=== PATIENT | male | born 1955 | race Hispanic/Latino ===

== ENCOUNTER 2023-03-18 00:31 | Inpatient (IN) | payer OTHER ==
[2023-03-18] VITALS (56 sets, daily range): BP systolic 83–130; BP diastolic 22–98; PULSE 52–67; RESP 11–51; O2SAT 94–99
[~2023-03-18] VITALS: Ht 167.6 cm; Wt 94.3 kg
[2023-03-18] MEDS ORDERED: BRIM5DRO OP (04:29)
[2023-03-18] MEDS ORDERED: LANT10005 PO (04:29)
[2023-03-18] MEDS ORDERED: GLIP5TAB11 PO (04:29)
[2023-03-18] MEDS ORDERED: CILO100T3 PO (04:29)
[2023-03-18] MEDS ORDERED: PRAV20TA4 PO (04:29)
[2023-03-18] MEDS ORDERED: DEXTROSE 50%-WATER 50 ML DISP.SYRIN IV PRN (12:30)
[2023-03-18] MEDS ORDERED: GLUCAGON 1MG KIT 1 MG ML IM PRN (12:30)
[2023-03-18 13:04] LABS: INR 1.07 (0.85-1.15); PROTHROMBIN TIME 12.4 SEC (9.6-11.6)
[2023-03-18 13:05] LABS: PARTIAL THROMBOPLASTIN TIME 36.6 SEC (26.3-35.5)
[2023-03-18 13:06] LABS: HEMOGLOBIN A1C 6.4 % (4.0-6.0)
[2023-03-18 13:10] LABS: ALBUMIN 2.5 g/dL (3.5-5.0); BILIRUBIN,TOTAL 0.7 mg/dL (0.2-1.0); CREATININE 7.3 mg/dL (0.5-1.5); POTASSIUM 4.2 mmol/L (3.5-5.1); TOTAL PROTEIN, SERUM 6.5 g/dL (6.0-8.3)
[2023-03-18 13:46] LABS: B-TYPE NATRIURETIC PEPTIDE > 5000 pg/mL (0-100)
[2023-03-18 13:50] LABS: HEMATOCRIT 30.6 % (42-54); MEAN CORPUSCULAR HEMOGLOBIN 31.3 pg (27.0-33.0); MEAN CORPUSCULAR VOLUME 100.7 fL (79-99); PLATELET COUNT (AUTO) 182 K/uL (130-400); RED BLOOD CELL COUNT(AUTO) 3.04 MIL/uL (4.50-6.20); RED CELL DISTRIBUTION WIDTH 14.2 % (11.0-15.5); WHITE BLOOD COUNT (AUTO) 10.9 K/uL (4.8-10.8)
[2023-03-18] MEDS ORDERED: PHENTOLAMINE MESYLATE 5 MG VIAL ICAV SCH (15:00)
[2023-03-18] MEDS ORDERED: VANCOMYCIN PROTOCOL PER PHARMACY IV SCH (15:00)
[2023-03-18] MEDS ORDERED: VANCOMYCIN 1.5 GM/250 ML BAG 250 ML IV ONE (15:00)
[2023-03-18 15:25] LABS: ABG BASE EXCESS -0.7 mmol/L (-2.0-3.0); ABG HCO3 24.1 mmol/L (21.0-28.0); ABG OXYGEN SATURATION 94.7 % (95.0-99.0); ABG PCO2 41 mmHg (35-48); ABG PH 7.393 (7.35-7.450); DEVICE COMMENT RR; PO2, ARTERIAL BG 73.4 mmHg (83.0-108.0); VENT MODE, BG NC (ROOM AIR)
[2023-03-18] MEDS: INSULIN HUMULIN R 100 UNIT/ML 3ML SQ SCH ×2 (16:30→21:00)
[2023-03-18] MEDS: LANTHANUM CARBONATE 1000 MG PO SCH (16:46)
[2023-03-18] MEDS: MEROPENEM 500 MG in 0.9%NACL 100ML 100 ML IV SCH (18:02)
[2023-03-18] MEDS ORDERED: ATORVASTATIN 40 MG TABLET PO SCH (21:00)
[2023-03-18] MEDS: METOPROLOL TARTRATE 25 MG TAB PO SCH (21:00)
[2023-03-18] MEDS: TIMOLOL OP SCH (21:29)
[2023-03-18] MEDS: BRIMONIDINE TARTRATE OP SCH (21:29)
[2023-03-18] MEDS: ATORVASTATIN 40 MG TABLET PO SCH (21:31)
[2023-03-18] MEDS ORDERED: HEPARIN 5,000 UNIT VIAL SQ SCH (23:00)
[2023-03-19] VITALS (46 sets, daily range): BP systolic 90–246; BP diastolic 25–238; PULSE 52–70; RESP 10–21; TEMP 97.4; O2SAT 98–100
[2023-03-19 04:21] LABS: HEPATITIS B SURFACE ANTIGEN Non-Reactive (Nonreactive); HEPATITIS C ANTIBODY Non-Reactive (Nonreactive)
[2023-03-19 04:23] LABS: HEPATITIS A IGM ANTIBODY Non-Reactive (Nonreactive); HEPATITIS B CORE IGM ANTIBODY Non-Reactive (Negative)
[2023-03-19 06:32] LABS: BASOPHILS # (AUTO) 0.04 K/uL (0.00-0.20); BASOPHILS % (AUTO) 0.4 % (0.0-5.0); EOSINOPHILS # (AUTO) 0.11 K/uL (0.00-0.70); EOSINOPHILS % (AUTO) 1.2 % (0.0-8.0); HEMATOCRIT 28.8 % (42-54); IMMATURE GRANULOCYTE ABSOLUTE 0.07 K/uL (0-1); LYMPHOCYTES # (AUTO) 1.1 K/uL (1.0-4.8); LYMPHOCYTES % (AUTO) 11.5 % (21.0-51.0); MEAN CORPUSCULAR HEMOGLOBIN 30.8 pg (27.0-33.0); MEAN CORPUSCULAR HGB CONC 31.3 g/dL (32.0-36.0); MEAN CORPUSCULAR VOLUME 98.6 fL (79-99); MONOCYTES # (AUTO) 0.9 K/uL (0.1-1.0); MONOCYTES % (AUTO) 10.1 % (3.0-13.0); PLATELET COUNT (AUTO) 172 K/uL (130-400); RED BLOOD CELL COUNT(AUTO) 2.92 MIL/uL (4.50-6.20); RED CELL DISTRIBUTION WIDTH 14.2 % (11.0-15.5); WHITE BLOOD COUNT (AUTO) 9.3 K/uL (4.8-10.8)
[2023-03-19 06:53] LABS: PROTHROMBIN TIME 11.6 SEC (9.6-11.6)
[2023-03-19 06:55] LABS: PARTIAL THROMBOPLASTIN TIME 35.5 SEC (26.3-35.5)
[2023-03-19 06:57] LABS: ALBUMIN 2.4 g/dL (3.5-5.0); BILIRUBIN,TOTAL 0.6 mg/dL (0.2-1.0); PHOSPHORUS 6.3 mg/dL (2.5-4.9); POTASSIUM 3.8 mmol/L (3.5-5.1); TOTAL PROTEIN, SERUM 6.3 g/dL (6.0-8.3)
[2023-03-19 06:58] LABS: CREATININE 8.5 mg/dL (0.5-1.5)
[2023-03-19] MEDS: INSULIN HUMULIN R 100 UNIT/ML 3ML SQ SCH ×2 (07:30→11:30)
[2023-03-19] MEDS: LANTHANUM CARBONATE 1000 MG PO SCH ×3 (07:30→22:08)
[2023-03-19] MEDS: TIMOLOL OP SCH ×2 (09:00→21:00)
[2023-03-19] MEDS: ASPIRIN 81 MG EC TAB PO SCH (09:00)
[2023-03-19] MEDS: BRIMONIDINE TARTRATE OP SCH ×2 (09:00→21:00)
[2023-03-19] MEDS: PANTOPRAZOLE 40 MG/VIAL IVP SCH (09:00)
[2023-03-19] MEDS: METOPROLOL TARTRATE 25 MG TAB PO SCH (09:00)
[2023-03-19] MEDS ORDERED: CEFAZOLIN SODIUM 2 GM VIAL IVPB SCH (10:00)
[2023-03-19] MEDS ORDERED: EPOETIN ALFA-EPBX (NON-ESRD) 10,000 UNIT/ML VIAL SQ SCH (10:00)
[2023-03-19] MEDS ORDERED: NOREPINEPHRINE BITARTRATE 8 MG in DEXTROSE 5%-WATER 250 ML IV PRN ×2 (11:00→19:00)
[2023-03-19] MEDS ORDERED: AMINOCAPROIC ACID 5,000MG VIAL 15,000 MG in 0.9% NACL 500ML IV.SOLN 420 ML IV PRN (11:00)
[2023-03-19] MEDS ORDERED: EPINEPHRINE PF 1MG (1:1,000) 10 MG in 0.9% NACL 250ML 240 ML IV PRN ×2 (11:00→19:00)
[2023-03-19 12:30] LABS: SARS-CoV-2, RNA, NAAT NEGATIVE SARS CoV-2 (NEGATIVE)
[2023-03-19] MEDS ORDERED: NITROGLYCERIN 50MG/D5W 250ML 1 BOT ONE (12:37)
[2023-03-19] MEDS ORDERED: PAPAVERINE HCL 30 MG/ML 2ML VIAL ONE (12:51)
[2023-03-19] MEDS ORDERED: CEFAZOLIN SODIUM 1 GM VIAL ONE (12:52)
[2023-03-19] MEDS ORDERED: PROPOFOL 10 MG/ML 20ML VIAL IV ONE ×2 (15:17→18:45)
[2023-03-19] MEDS ORDERED: MIDAZOLAM HCL 1 MG/ML 2ML VIAL ONE (15:19)
[2023-03-19] MEDS ORDERED: FENTANYL CITRATE PF 50 MCG/1 ML 20ML VIAL IJ ONE (15:19)
[2023-03-19] MEDS ORDERED: ROCURONIUM 10MG/1ML SYR 10 MG/ML ML ONE ×2 (15:20→19:06)
[2023-03-19] MEDS ORDERED: ONDANSETRON 4MG INJ ONE (15:41)
[2023-03-19] MEDS ORDERED: CEFAZOLIN SODIUM 2 GM VIAL IVPB ONE (16:53)
[2023-03-19 17:41] LABS: ABG BASE EXCESS -2.1 mmol/L (-2.0-3.0); ABG HCO3 22.4 mmol/L (21.0-28.0); ABG OXYGEN SATURATION 99.1 % (95.0-99.0); ABG PCO2 37 mmHg (35-48); ABG PH 7.397 (7.35-7.450); CARBON MONOXIDE 0.3; DEVICE COMMENT 1; HHb 0.9; PO2, ARTERIAL BG 310.7 mmHg (83.0-108.0)
[2023-03-19] MEDS ORDERED: DEXTROSE 50%-WATER 50 ML DISP.SYRIN IV PRN (19:00)
[2023-03-19] MEDS ORDERED: 0.9%NACL 1000ML 1,000 ML IV SCH (19:00)
[2023-03-19] MEDS ORDERED: LACTULOSE 20 GM/30 ML UDCUP PO PRN (19:00)
[2023-03-19] MEDS ORDERED: MORPHINE 2 MG SYG IV PRN (19:00)
[2023-03-19] MEDS ORDERED: ACETAMINOPHEN 650 MG SUPPOSITORY RC PRN (19:00)
[2023-03-19] MEDS ORDERED: GLUCAGON 1MG KIT 1 MG ML IM PRN (19:00)
[2023-03-19] MEDS ORDERED: 0.9% NACL 500ML IV.SOLN 500 ML IV SCH (19:00)
[2023-03-19] MEDS ORDERED: MORPHINE 4 MG SYG IV PRN (19:00)
[2023-03-19] MEDS ORDERED: POTASSIUM PHOS 15 mMOL+NS250ML 250 ML IV PRN (19:00)
[2023-03-19] MEDS ORDERED: MAGNESIUM 2GM PREMIX 50ML 50 ML IV PRN (19:00)
[2023-03-19] MEDS ORDERED: ACETAMINOPHEN 325 MG TAB PO PRN (19:00)
[2023-03-19] MEDS ORDERED: 0.9%NACL 10ML VIAL IVP PRN (19:00)
[2023-03-19] MEDS ORDERED: INSULIN REGULAR, HUMAN 3ML 100 UNIT in 0.9%NACL 100ML 99 ML IV SCH ×2 (19:00)
[2023-03-19] MEDS ORDERED: POTASSIUM CHLORIDE 20MEQ/100ML 100 ML IV PRN (19:00)
[2023-03-19] MEDS ORDERED: AMINOCAPROIC ACID 5,000MG VIAL 15,000 MG in 0.9% NACL 250ML 250 ML IV SCH (19:00)
[2023-03-19] MEDS ORDERED: PROPOFOL 1000 MG/100 ML 100 ML IV PRN (19:00)
[2023-03-19] MEDS ORDERED: ALBUMIN (HUMAN) 5% 250 ML IV PRN (19:00)
[2023-03-19] MEDS ORDERED: TRAMADOL HCL 50 MG TABLET PO PRN ×2 (19:00)
[2023-03-19] MEDS ORDERED: NITROGLYCERIN 50MG/D5W 250ML 250 BOT IV SCH (19:00)
[2023-03-19 19:10] LABS: ABG BASE EXCESS -6.7 mmol/L (-2.0-3.0); ABG HCO3 19.1 mmol/L (21.0-28.0); ABG OXYGEN SATURATION 99.3 % (95.0-99.0); ABG PCO2 39 mmHg (35-48); ABG PH 7.305 (7.35-7.450); CARBON MONOXIDE 0.2; DEVICE COMMENT 0; HHb 0.7; PO2, ARTERIAL BG 330.7 mmHg (83.0-108.0)
[2023-03-19] MEDS ORDERED: SODIUM BICARB 50MEQ 50ML VIAL 50 ML ONE (19:28)
[2023-03-19 20:03] LABS: ABG BASE EXCESS 3.3 mmol/L (-2.0-3.0); ABG HCO3 27.2 mmol/L (21.0-28.0); ABG OXYGEN SATURATION 99.3 % (95.0-99.0); ABG PCO2 39 mmHg (35-48); ABG PH 7.465 (7.35-7.450); CARBON MONOXIDE 0.3; DEVICE COMMENT 0; HHb 0.7; PO2, ARTERIAL BG > 500.0 mmHg (83.0-108.0)
[2023-03-19] MEDS ORDERED: KETAMINE 50MG/ML SYRINGE 50 MG/ML DISP.SYRIN ONE (20:36)
[2023-03-19] MEDS ORDERED: PROTAMINE SULFATE 10 MG/ML 25ML VIAL IV ONE (20:52)
[2023-03-19] MEDS ORDERED: ESMOLOL HCL 10 MG/ML 10 ML VIAL ONE (20:52)
[2023-03-19] MEDS ORDERED: EPINEPHRINE PF 1MG (1:1,000) 1 MG/ML AMP ONE (20:52)
[2023-03-19] MEDS ORDERED: LIDOCAINE PF 100MG/5ML (2%) SYRINGE 5ML ONE (20:52)
[2023-03-19] MEDS ORDERED: AMINOCAPROIC ACID 5,000MG VIAL ONE (20:52)
[2023-03-19] MEDS ORDERED: HEPARIN 10,000 UNIT/10ML (1,000 UNIT/ML) VIAL ONE (20:52)
[2023-03-19] MEDS ORDERED: NOREPINEPHRINE BITARTRATE 1 MG/1 ML ML IV ONE (20:52)
[2023-03-19] MEDS ORDERED: ASPIRIN 81MG CHEW TAB PO ONE (21:00)
[2023-03-19] MEDS ORDERED: FENTANYL CITRATE PF 50 MCG/1 ML 2ML VIAL ONE (21:16)
[2023-03-19 21:20] LABS: ABG BASE EXCESS -2.9 mmol/L (-2.0-3.0); ABG HCO3 21.5 mmol/L (21.0-28.0); ABG OXYGEN SATURATION 98.8 % (95.0-99.0); ABG PCO2 36 mmHg (35-48); ABG PH 7.396 (7.35-7.450); CARBON MONOXIDE 0.6; HHb 1.2; PO2, ARTERIAL BG 319.9 mmHg (83.0-108.0); VENT MODE, BG SIMV PS10 (ROOM AIR)
[2023-03-19] MEDS: CALCIUM GLUC 1GM 1 GM in 0.9%NACL 50ML 50 ML IV PRN ×2 (21:36→22:14)
[2023-03-19] MEDS: SODIUM BICARB 50MEQ 50ML VIAL IV PRN ×4 (21:36→23:39)
[2023-03-19 21:44] LABS: HEMATOCRIT 34.2 % (42-54); MEAN CORPUSCULAR HEMOGLOBIN 30.4 pg (27.0-33.0); MEAN CORPUSCULAR HGB CONC 31.6 g/dL (32.0-36.0); MEAN CORPUSCULAR VOLUME 96.3 fL (79-99); RED BLOOD CELL COUNT(AUTO) 3.55 MIL/uL (4.50-6.20); WHITE BLOOD COUNT (AUTO) 14.6 K/uL (4.8-10.8)
[2023-03-19 21:57] LABS: INR 1.08 (0.85-1.15); PROTHROMBIN TIME 12.5 SEC (9.6-11.6)
[2023-03-19 21:58] LABS: CREATININE 7.8 mg/dL (0.5-1.5); MAGNESIUM 1.7 mg/dL (1.80-2.40); PHOSPHORUS 6.2 mg/dL (2.5-4.9)
[2023-03-19 21:59] LABS: PARTIAL THROMBOPLASTIN TIME 31.8 SEC (26.3-35.5)
[2023-03-19 22:03] LABS: ABG BASE EXCESS 0.3 mmol/L (-2.0-3.0); ABG HCO3 24.5 mmol/L (21.0-28.0); ABG OXYGEN SATURATION 98.4 % (95.0-99.0); ABG PCO2 38 mmHg (35-48); ABG PH 7.431 (7.35-7.450); CARBON MONOXIDE 0.3; HHb 1.6; PO2, ARTERIAL BG 306.9 mmHg (83.0-108.0); VENT MODE, BG SIMV PS10 (ROOM AIR)
[2023-03-19] MEDS: DOCUSATE SODIUM 100 MG CAP PO SCH (22:15)
[2023-03-19] MEDS: FAMOTIDINE 20MG VIAL IV SCH (22:15)
[2023-03-19] MEDS: ATORVASTATIN 40 MG TABLET PO SCH (22:15)
[2023-03-19 22:57] LABS: ABG BASE EXCESS -2.8 mmol/L (-2.0-3.0); ABG HCO3 21.7 mmol/L (21.0-28.0); ABG OXYGEN SATURATION 97.8 % (95.0-99.0); ABG PCO2 37 mmHg (35-48); ABG PH 7.392 (7.35-7.450); HHb 2.2; PO2, ARTERIAL BG 136.8 mmHg (83.0-108.0); VENT MODE, BG SIMV PS10 (ROOM AIR)
[2023-03-19] MEDS: CEFAZOLIN SODIUM 2 GM VIAL IVPB SCH (23:42)
[2023-03-20] VITALS (115 sets, daily range): BP systolic 65–198; BP diastolic 23–94; PULSE 53–76; RESP 6–41; TEMP 97.6–99; O2SAT 98–100
[2023-03-20 00:10] LABS: ABG BASE EXCESS -0.6 mmol/L (-2.0-3.0); ABG HCO3 23.2 mmol/L (21.0-28.0); ABG OXYGEN SATURATION 97.5 % (95.0-99.0); ABG PCO2 35 mmHg (35-48); ABG PH 7.441 (7.35-7.450); CARBON MONOXIDE 0.6; HHb 2.5; PO2, ARTERIAL BG 132.6 mmHg (83.0-108.0); VENT MODE, BG SIMV PS10 (ROOM AIR)
[2023-03-20] MEDS: CALCIUM GLUC 1GM 1 GM in 0.9%NACL 50ML 50 ML IV PRN ×4 (00:17→08:23)
[2023-03-20] MEDS: SODIUM BICARB 50MEQ 50ML VIAL IV PRN (00:17)
[2023-03-20 01:10] LABS: ABG BASE EXCESS 0.4 mmol/L (-2.0-3.0); ABG HCO3 25.4 mmol/L (21.0-28.0); ABG OXYGEN SATURATION 97.1 % (95.0-99.0); ABG PCO2 43 mmHg (35-48); ABG PH 7.393 (7.35-7.450); CARBON MONOXIDE 0.6; HHb 2.9; PO2, ARTERIAL BG 112.3 mmHg (83.0-108.0); VENT MODE, BG SIMV PS10 (ROOM AIR)
[2023-03-20 02:09] LABS: ABG BASE EXCESS 1.5 mmol/L (-2.0-3.0); ABG HCO3 24.9 mmol/L (21.0-28.0); ABG OXYGEN SATURATION 97.2 % (95.0-99.0); ABG PCO2 35 mmHg (35-48); ABG PH 7.475 (7.35-7.450); CARBON MONOXIDE 0.4; HHb 2.8; PO2, ARTERIAL BG 111.8 mmHg (83.0-108.0); VENT MODE, BG SIMV PS10 (ROOM AIR)
[2023-03-20 03:10] LABS: ABG HCO3 26.3 mmol/L (21.0-28.0); ABG OXYGEN SATURATION 97.2 % (95.0-99.0); ABG PCO2 31 mmHg (35-48); ABG PH 7.543 (7.35-7.450); CARBON MONOXIDE 0.4; HHb 2.8; PO2, ARTERIAL BG 105.1 mmHg (83.0-108.0); VENT MODE, BG SIMV,PS10 (ROOM AIR)
[2023-03-20 03:29] LABS: BASOPHILS # (AUTO) 0.03 K/uL (0.00-0.20); BASOPHILS % (AUTO) 0.2 % (0.0-5.0); EOSINOPHILS # (AUTO) 0.01 K/uL (0.00-0.70); EOSINOPHILS % (AUTO) 0.1 % (0.0-8.0); HEMATOCRIT 28.8 % (42-54); IMMATURE GRANULOCYTE ABSOLUTE 0.19 K/uL (0-1); LYMPHOCYTES # (AUTO) 0.9 K/uL (1.0-4.8); LYMPHOCYTES % (AUTO) 7.2 % (21.0-51.0); MEAN CORPUSCULAR HEMOGLOBIN 30.7 pg (27.0-33.0); MEAN CORPUSCULAR VOLUME 93.2 fL (79-99); MONOCYTES # (AUTO) 1.1 K/uL (0.1-1.0); MONOCYTES % (AUTO) 8.8 % (3.0-13.0); NEUTROPHILS # (AUTO) 10.4 K/uL (1.8-7.7); NEUTROPHILS % (AUTO) 82.2 % (40.0-77.0); PLATELET COUNT (AUTO) 146 K/uL (130-400); RED BLOOD CELL COUNT(AUTO) 3.09 MIL/uL (4.50-6.20); RED CELL DISTRIBUTION WIDTH 15.6 % (11.0-15.5); WHITE BLOOD COUNT (AUTO) 12.7 K/uL (4.8-10.8)
[2023-03-20 03:42] LABS: INR 1.06 (0.85-1.15); PROTHROMBIN TIME 12.2 SEC (9.6-11.6)
[2023-03-20 03:43] LABS: PARTIAL THROMBOPLASTIN TIME 29.3 SEC (26.3-35.5)
[2023-03-20 04:00] LABS: BILIRUBIN,TOTAL 0.9 mg/dL (0.2-1.0); MAGNESIUM 2.3 mg/dL (1.80-2.40); PHOSPHORUS 6.3 mg/dL (2.5-4.9); POTASSIUM 3.8 mmol/L (3.5-5.1); TOTAL PROTEIN, SERUM 4.8 g/dL (6.0-8.3)
[2023-03-20 04:22] LABS: ABG BASE EXCESS 2.5 mmol/L (-2.0-3.0); ABG HCO3 26.7 mmol/L (21.0-28.0); ABG OXYGEN SATURATION 96.9 % (95.0-99.0); ABG PCO2 40 mmHg (35-48); ABG PH 7.444 (7.35-7.450); CARBON MONOXIDE 0.6; HHb 3.1; PO2, ARTERIAL BG 108.3 mmHg (83.0-108.0); VENT MODE, BG SIMV PS10 (ROOM AIR)
[2023-03-20 04:25] LABS: CREATININE 8.4 mg/dL (0.5-1.5)
[2023-03-20 05:31] LABS: ABG HCO3 24.7 mmol/L (21.0-28.0); ABG PCO2 36 mmHg (35-48); ABG PH 7.456 (7.35-7.450); CARBON MONOXIDE 0.9; PO2, ARTERIAL BG 101.6 mmHg (83.0-108.0); VENT MODE, BG SIMV PS10 (ROOM AIR)
[2023-03-20] MEDS: ONDANSETRON 4MG INJ IV PRN (05:34)
[2023-03-20 06:33] LABS: ABG BASE EXCESS 1.5 mmol/L (-2.0-3.0); ABG HCO3 25.1 mmol/L (21.0-28.0); ABG OXYGEN SATURATION 97.2 % (95.0-99.0); ABG PCO2 36 mmHg (35-48); ABG PH 7.466 (7.35-7.450); CARBON MONOXIDE 0.4; DEVICE COMMENT ALINE; HHb 2.8; PO2, ARTERIAL BG 114.2 mmHg (83.0-108.0); VENT MODE, BG SIMV PS10 (ROOM AIR)
[2023-03-20 07:27] LABS: ABG BASE EXCESS 1.8 mmol/L (-2.0-3.0); ABG HCO3 24.6 mmol/L (21.0-28.0); ABG OXYGEN SATURATION 97.4 % (95.0-99.0); ABG PCO2 32 mmHg (35-48); ABG PH 7.501 (7.35-7.450); CARBON MONOXIDE 0.4; DEVICE COMMENT ALINE; HHb 2.6; PO2, ARTERIAL BG 111.8 mmHg (83.0-108.0); VENT MODE, BG SIMV PS10 (ROOM AIR)
[2023-03-20] MEDS: LANTHANUM CARBONATE 1000 MG PO SCH ×3 (07:30→17:00)
[2023-03-20] MEDS: FAMOTIDINE 20MG VIAL IV SCH ×2 (07:51→19:54)
[2023-03-20] MEDS: PANTOPRAZOLE 40 MG/VIAL IVP SCH (07:51)
[2023-03-20] MEDS: DOCUSATE SODIUM 100 MG CAP PO SCH ×2 (07:51→19:54)
[2023-03-20] MEDS: CEFAZOLIN SODIUM 2 GM VIAL IVPB SCH ×2 (07:51→17:33)
[2023-03-20] MEDS: ASPIRIN 81 MG EC TAB PO SCH (07:51)
[2023-03-20 09:00] LABS: ABG BASE EXCESS 0.3 mmol/L (-2.0-3.0); ABG HCO3 22.7 mmol/L (21.0-28.0); ABG OXYGEN SATURATION 96.2 % (95.0-99.0); ABG PCO2 29 mmHg (35-48); ABG PH 7.513 (7.35-7.450); CARBON MONOXIDE 0.3; CPAP, BG 5 cm H2O; DEVICE COMMENT ALINE; HHb 3.8; PO2, ARTERIAL BG 91.6 mmHg (83.0-108.0); VENT MODE, BG CPAP5 PS10 (ROOM AIR)
[2023-03-20] MEDS: BRIMONIDINE TARTRATE OP SCH ×2 (09:00→19:57)
[2023-03-20] MEDS: TIMOLOL OP SCH ×2 (09:00→19:57)
[2023-03-20] MEDS: MEROPENEM 500 MG in 0.9%NACL 100ML 100 ML IV SCH ×2 (14:10→14:11)
[2023-03-20] MEDS ORDERED: ALBUMIN (HUMAN) 5% 250 ML IV ONE (15:11)
[2023-03-20] MEDS ORDERED: CEFAZOLIN SODIUM 2 GM VIAL IVPB SCH (17:30)
[2023-03-20] MEDS: ATORVASTATIN 40 MG TABLET PO SCH (19:54)
[2023-03-20] MEDS: VANCOMYCIN KIT 1 GM/250 ML IV.KIT IV SCH (19:54)
[2023-03-21] VITALS (88 sets, daily range): BP systolic 48–264; BP diastolic 17–96; PULSE 57–121; RESP 4–27; TEMP 97.7–98.9; O2SAT 98–100
[2023-03-21 04:23] LABS: BASOPHILS # (AUTO) 0.06 K/uL (0.00-0.20); BASOPHILS % (AUTO) 0.4 % (0.0-5.0); EOSINOPHILS # (AUTO) 0.03 K/uL (0.00-0.70); EOSINOPHILS % (AUTO) 0.2 % (0.0-8.0); HEMATOCRIT 27.3 % (42-54); IMMATURE GRANULOCYTE ABSOLUTE 0.18 K/uL (0-1); LYMPHOCYTES # (AUTO) 1.3 K/uL (1.0-4.8); LYMPHOCYTES % (AUTO) 9.1 % (21.0-51.0); MEAN CORPUSCULAR HEMOGLOBIN 30.8 pg (27.0-33.0); MEAN CORPUSCULAR HGB CONC 32.2 g/dL (32.0-36.0); MEAN CORPUSCULAR VOLUME 95.5 fL (79-99); MONOCYTES # (AUTO) 1.6 K/uL (0.1-1.0); MONOCYTES % (AUTO) 11.9 % (3.0-13.0); NEUTROPHILS # (AUTO) 10.6 K/uL (1.8-7.7); NEUTROPHILS % (AUTO) 77.1 % (40.0-77.0); PLATELET COUNT (AUTO) 167 K/uL (130-400); RED BLOOD CELL COUNT(AUTO) 2.86 MIL/uL (4.50-6.20); RED CELL DISTRIBUTION WIDTH 15.6 % (11.0-15.5); WHITE BLOOD COUNT (AUTO) 13.7 K/uL (4.8-10.8)
[2023-03-21 04:49] LABS: ALBUMIN 2.3 g/dL (3.5-5.0); BILIRUBIN,TOTAL 0.5 mg/dL (0.2-1.0); CREATININE 6.5 mg/dL (0.5-1.5); MAGNESIUM 2.1 mg/dL (1.80-2.40); POTASSIUM 3.5 mmol/L (3.5-5.1); TOTAL PROTEIN, SERUM 5.5 g/dL (6.0-8.3)
[2023-03-21] MEDS: LANTHANUM CARBONATE 1000 MG PO SCH ×3 (07:30→17:00)
[2023-03-21] MEDS: METOPROLOL TARTRATE 25 MG TAB PO SCH ×2 (07:58→21:00)
[2023-03-21] MEDS: ASPIRIN 81 MG EC TAB PO SCH (08:49)
[2023-03-21] MEDS: FAMOTIDINE 20MG VIAL IV SCH ×2 (08:49→20:06)
[2023-03-21] MEDS: DOCUSATE SODIUM 100 MG CAP PO SCH ×2 (08:49→20:06)
[2023-03-21] MEDS: PANTOPRAZOLE 40 MG/VIAL IVP SCH (08:49)
[2023-03-21] MEDS: TIMOLOL OP SCH (10:06)
[2023-03-21] MEDS: BRIMONIDINE TARTRATE OP SCH (10:06)
[2023-03-21] MEDS: MEROPENEM 500 MG in 0.9%NACL 100ML 100 ML IV SCH (16:47)
[2023-03-21] MEDS: INSULIN HUMULIN R 100 UNIT/ML 3ML SQ SCH ×2 (17:08→21:03)
[2023-03-21] MEDS ORDERED: NOREPINEPHRIN 8MG/250ML NS PMX 250 ML IV ONE (19:29)
[2023-03-21] MEDS ORDERED: NOREPINEPHRINE BITARTRATE 8 MG in 0.9% NACL 250ML 250 ML IV PRN (20:00)
[2023-03-21] MEDS: ATORVASTATIN 40 MG TABLET PO SCH (20:06)
[2023-03-22] VITALS (52 sets, daily range): BP systolic 52–172; BP diastolic 25–68; PULSE 52–66; RESP 11–23; TEMP 96–97.5; O2SAT 100
[2023-03-22] MEDS: LANTHANUM CARBONATE 1000 MG PO SCH ×3 (07:30→14:27)
[2023-03-22] MEDS: INSULIN HUMULIN R 100 UNIT/ML 3ML SQ SCH ×4 (07:30→21:00)
[2023-03-22] MEDS: DOCUSATE SODIUM 100 MG CAP PO SCH ×2 (09:00→21:08)
[2023-03-22] MEDS: PANTOPRAZOLE 40 MG/VIAL IVP SCH (09:00)
[2023-03-22] MEDS: FAMOTIDINE 20MG VIAL IV SCH ×2 (09:00→21:08)
[2023-03-22] MEDS: HEPARIN 5,000 UNIT VIAL SQ SCH ×2 (09:00→21:13)
[2023-03-22] MEDS: ASPIRIN 81 MG EC TAB PO SCH (09:00)
[2023-03-22] MEDS: TIMOLOL OP SCH ×2 (09:00→22:25)
[2023-03-22] MEDS: METOPROLOL TARTRATE 25 MG TAB PO SCH ×2 (09:00→20:51)
[2023-03-22] MEDS: BRIMONIDINE TARTRATE OP SCH ×2 (09:00→22:25)
[2023-03-22 10:27] LABS: CREATININE 7.5 mg/dL (0.5-1.5); POTASSIUM 3.6 mmol/L (3.5-5.1)
[2023-03-22] MEDS: MIDODRINE HCL 5 MG TABLET PO SCH ×2 (14:34→22:22)
[2023-03-22] MEDS: MEROPENEM 500 MG in 0.9%NACL 100ML 100 ML IV SCH (14:35)
[2023-03-22 14:38] LABS: HEMATOCRIT 26.7 % (42-54); MEAN CORPUSCULAR HEMOGLOBIN 31.4 pg (27.0-33.0); MEAN CORPUSCULAR HGB CONC 32.2 g/dL (32.0-36.0); MEAN CORPUSCULAR VOLUME 97.4 fL (79-99); RED BLOOD CELL COUNT(AUTO) 2.74 MIL/uL (4.50-6.20); RED CELL DISTRIBUTION WIDTH 15.3 % (11.0-15.5); WHITE BLOOD COUNT (AUTO) 13.8 K/uL (4.8-10.8)
[2023-03-22 14:48] LABS: MAGNESIUM 2.2 mg/dL (1.80-2.40); PHOSPHORUS 6.7 mg/dL (2.5-4.9)
[2023-03-22] MEDS: ATORVASTATIN 40 MG TABLET PO SCH (21:08)
[2023-03-22] MEDS: VANCOMYCIN KIT 1 GM/250 ML IV.KIT IV SCH (21:08)
[2023-03-23] VITALS (69 sets, daily range): BP systolic 66–138; BP diastolic 22–63; PULSE 52–64; RESP 13–24; TEMP 97.4–97.6; O2SAT 100
[2023-03-23 05:34] LABS: MEAN CORPUSCULAR HEMOGLOBIN 30.1 pg (27.0-33.0); MEAN CORPUSCULAR HGB CONC 31.1 g/dL (32.0-36.0); MEAN CORPUSCULAR VOLUME 96.9 fL (79-99); RED BLOOD CELL COUNT(AUTO) 2.89 MIL/uL (4.50-6.20); RED CELL DISTRIBUTION WIDTH 14.9 % (11.0-15.5); WHITE BLOOD COUNT (AUTO) 11.6 K/uL (4.8-10.8)
[2023-03-23 05:45] LABS: INR 1.08 (0.85-1.15); PROTHROMBIN TIME 12.5 SEC (9.6-11.6)
[2023-03-23 05:46] LABS: CREATININE 5.8 mg/dL (0.5-1.5); PARTIAL THROMBOPLASTIN TIME 45.3 SEC (26.3-35.5); POTASSIUM 3.5 mmol/L (3.5-5.1)
[2023-03-23] MEDS: MIDODRINE HCL 5 MG TABLET PO SCH ×4 (06:00→21:06)
[2023-03-23] MEDS: LANTHANUM CARBONATE 1000 MG PO SCH ×3 (06:11→14:59)
[2023-03-23] MEDS: INSULIN HUMULIN R 100 UNIT/ML 3ML SQ SCH ×4 (06:12→21:00)
[2023-03-23] MEDS: ASPIRIN 81 MG EC TAB PO SCH (08:23)
[2023-03-23] MEDS: DOCUSATE SODIUM 100 MG CAP PO SCH ×2 (08:24→21:00)
[2023-03-23] MEDS: METOPROLOL TARTRATE 25 MG TAB PO SCH ×3 (08:24→21:02)
[2023-03-23] MEDS: HEPARIN 5,000 UNIT VIAL SQ SCH ×2 (08:24→21:06)
[2023-03-23] MEDS: FAMOTIDINE 20MG VIAL IV SCH ×2 (09:00→21:02)
[2023-03-23] MEDS: PANTOPRAZOLE 40 MG/VIAL IVP SCH (11:40)
[2023-03-23] MEDS: TIMOLOL OP SCH ×2 (11:41→21:00)
[2023-03-23] MEDS: BRIMONIDINE TARTRATE OP SCH ×2 (11:41→21:00)
[2023-03-23] MEDS: MEROPENEM 500 MG in 0.9%NACL 100ML 100 ML IV SCH (14:59)
[2023-03-23] MEDS: ATORVASTATIN 40 MG TABLET PO SCH (21:02)
[2023-03-24] VITALS (119 sets, daily range): BP systolic 80–204; BP diastolic 24–98; PULSE 44–96; RESP 9–47; TEMP 97.5–97.6; O2SAT 60–100
[2023-03-24 02:32] LABS: ABG BASE EXCESS -7.3 mmol/L (-2.0-3.0); ABG HCO3 19.9 mmol/L (21.0-28.0); ABG OXYGEN SATURATION 98.1 % (95.0-99.0); ABG PCO2 48 mmHg (35-48); ABG PH 7.236 (7.35-7.450); CARBON MONOXIDE 0.4; DEVICE COMMENT RB RN; HHb 1.9; PO2, ARTERIAL BG 150.6 mmHg (83.0-108.0); VENT MODE, BG NRB (ROOM AIR)
[2023-03-24] MEDS ORDERED: SODIUM BICARB 50MEQ 50ML VIAL 150 ML ONE (02:36)
[2023-03-24 02:42] LABS: BASOPHILS # (AUTO) 0.08 K/uL (0.00-0.20); BASOPHILS % (AUTO) 0.5 % (0.0-5.0); EOSINOPHILS # (AUTO) 0.33 K/uL (0.00-0.70); HEMATOCRIT 29.9 % (42-54); IMMATURE GRANULOCYTE ABSOLUTE 0.64 K/uL (0-1); LYMPHOCYTES # (AUTO) 3.5 K/uL (1.0-4.8); LYMPHOCYTES % (AUTO) 20.7 % (21.0-51.0); MEAN CORPUSCULAR HEMOGLOBIN 30.6 pg (27.0-33.0); MEAN CORPUSCULAR HGB CONC 31.4 g/dL (32.0-36.0); MEAN CORPUSCULAR VOLUME 97.4 fL (79-99); MONOCYTES # (AUTO) 1.4 K/uL (0.1-1.0); MONOCYTES % (AUTO) 8.1 % (3.0-13.0); NEUTROPHILS # (AUTO) 10.9 K/uL (1.8-7.7); NEUTROPHILS % (AUTO) 64.9 % (40.0-77.0); NUCLEATED RED BLOOD CELLS 0.5 % (0.0-0.19); PLATELET COUNT (AUTO) 220 K/uL (130-400); RED BLOOD CELL COUNT(AUTO) 3.07 MIL/uL (4.50-6.20); RED CELL DISTRIBUTION WIDTH 14.9 % (11.0-15.5); WHITE BLOOD COUNT (AUTO) 16.7 K/uL (4.8-10.8)
[2023-03-24 02:56] LABS: CREATININE 7.2 mg/dL (0.5-1.5); POTASSIUM 3.2 mmol/L (3.5-5.1); VANCOMYCIN LEVEL 25.4 mcg/mL (18.0-26.0)
[2023-03-24] MEDS: MIDODRINE HCL 5 MG TABLET PO SCH ×4 (06:00→22:00)
[2023-03-24] MEDS: INSULIN HUMULIN R 100 UNIT/ML 3ML SQ SCH ×4 (06:39→20:44)
[2023-03-24] MEDS: LANTHANUM CARBONATE 1000 MG PO SCH ×2 (07:30→11:21)
[2023-03-24 08:25] LABS: ABG BASE EXCESS -2.8 mmol/L (-2.0-3.0); ABG HCO3 22.4 mmol/L (21.0-28.0); ABG PCO2 41 mmHg (35-48); ABG PH 7.358 (7.35-7.450); CARBON MONOXIDE 0.4; PO2, ARTERIAL BG 71.7 mmHg (83.0-108.0); VENT MODE, BG BIPAP 12 6 (ROOM AIR)
[2023-03-24] MEDS: METOPROLOL TARTRATE 25 MG TAB PO SCH ×2 (09:00→20:44)
[2023-03-24] MEDS: DOCUSATE SODIUM 100 MG CAP PO SCH ×2 (09:00→20:57)
[2023-03-24] MEDS: PANTOPRAZOLE 40 MG/VIAL IVP SCH (09:00)
[2023-03-24] MEDS: ASPIRIN 81 MG EC TAB PO SCH (09:07)
[2023-03-24] MEDS: HEPARIN 5,000 UNIT VIAL SQ SCH ×2 (09:10→20:47)
[2023-03-24] MEDS: FAMOTIDINE 20MG VIAL IV SCH ×2 (09:11→20:43)
[2023-03-24] MEDS: BRIMONIDINE TARTRATE OP SCH ×2 (09:12→21:00)
[2023-03-24] MEDS: TIMOLOL OP SCH ×2 (09:12→21:00)
[2023-03-24 12:28] LABS: INR 1.03 (0.85-1.15); PROTHROMBIN TIME 11.9 SEC (9.6-11.6)
[2023-03-24 12:29] LABS: PARTIAL THROMBOPLASTIN TIME 36.1 SEC (26.3-35.5)
[2023-03-24] MEDS: MEROPENEM 500 MG in 0.9%NACL 100ML 100 ML IV SCH (16:54)
[2023-03-24] MEDS: VANCOMYCIN KIT 1 GM/250 ML IV.KIT IV SCH (20:43)
[2023-03-24] MEDS: ATORVASTATIN 40 MG TABLET PO SCH (20:43)
[2023-03-25] VITALS (56 sets, daily range): BP systolic 81–194; BP diastolic 32–114; PULSE 60–79; RESP 11–43; O2SAT 92–100
[2023-03-25 03:59] LABS: BASOPHILS # (AUTO) 0.05 K/uL (0.00-0.20); BASOPHILS % (AUTO) 0.5 % (0.0-5.0); EOSINOPHILS # (AUTO) 0.12 K/uL (0.00-0.70); EOSINOPHILS % (AUTO) 1.3 % (0.0-8.0); HEMATOCRIT 28.3 % (42-54); LYMPHOCYTES # (AUTO) 1.3 K/uL (1.0-4.8); LYMPHOCYTES % (AUTO) 13.5 % (21.0-51.0); MEAN CORPUSCULAR HEMOGLOBIN 30.5 pg (27.0-33.0); MEAN CORPUSCULAR HGB CONC 30.7 g/dL (32.0-36.0); MEAN CORPUSCULAR VOLUME 99.3 fL (79-99); MONOCYTES # (AUTO) 0.9 K/uL (0.1-1.0); MONOCYTES % (AUTO) 9.2 % (3.0-13.0); NEUTROPHILS # (AUTO) 6.8 K/uL (1.8-7.7); NEUTROPHILS % (AUTO) 72.3 % (40.0-77.0); NUCLEATED RED BLOOD CELLS 0.9 % (0.0-0.19); PLATELET COUNT (AUTO) 173 K/uL (130-400); RED BLOOD CELL COUNT(AUTO) 2.85 MIL/uL (4.50-6.20); RED CELL DISTRIBUTION WIDTH 14.6 % (11.0-15.5); WHITE BLOOD COUNT (AUTO) 9.4 K/uL (4.8-10.8)
[2023-03-25 04:14] LABS: CREATININE 5.9 mg/dL (0.5-1.5); POTASSIUM 3.1 mmol/L (3.5-5.1)
[2023-03-25] MEDS: MIDODRINE HCL 5 MG TABLET PO SCH ×3 (06:00→20:16)
[2023-03-25] MEDS: INSULIN HUMULIN R 100 UNIT/ML 3ML SQ SCH ×4 (06:53→20:14)
[2023-03-25] MEDS: LANTHANUM CARBONATE 1000 MG PO SCH ×4 (07:30→17:02)
[2023-03-25] MEDS: FAMOTIDINE 20MG VIAL IV SCH ×2 (08:52→20:12)
[2023-03-25] MEDS: HEPARIN 5,000 UNIT VIAL SQ SCH ×2 (08:55→20:14)
[2023-03-25] MEDS: DOCUSATE SODIUM 100 MG CAP PO SCH ×2 (08:55→20:12)
[2023-03-25] MEDS: ASPIRIN 81 MG EC TAB PO SCH (08:55)
[2023-03-25] MEDS: BRIMONIDINE TARTRATE OP SCH ×2 (08:56→21:00)
[2023-03-25] MEDS: TIMOLOL OP SCH ×2 (08:56→21:00)
[2023-03-25] MEDS: PANTOPRAZOLE 40 MG/VIAL IVP SCH (09:00)
[2023-03-25] MEDS: METOPROLOL TARTRATE 25 MG TAB PO SCH ×2 (10:31→20:12)
[2023-03-25] MEDS: ATORVASTATIN 40 MG TABLET PO SCH (20:12)
[2023-03-26] VITALS (31 sets, daily range): BP systolic 85–154; BP diastolic 30–97; PULSE 56–64; RESP 12–21; TEMP 97.7; O2SAT 95–99
[2023-03-26 05:02] LABS: BASOPHILS # (AUTO) 0.04 K/uL (0.00-0.20); BASOPHILS % (AUTO) 0.3 % (0.0-5.0); EOSINOPHILS # (AUTO) 0.11 K/uL (0.00-0.70); IMMATURE GRANULOCYTE ABSOLUTE 0.28 K/uL (0-1); LYMPHOCYTES # (AUTO) 1.5 K/uL (1.0-4.8); MEAN CORPUSCULAR HEMOGLOBIN 30.8 pg (27.0-33.0); MEAN CORPUSCULAR HGB CONC 31.1 g/dL (32.0-36.0); MEAN CORPUSCULAR VOLUME 98.9 fL (79-99); MONOCYTES # (AUTO) 1.1 K/uL (0.1-1.0); MONOCYTES % (AUTO) 9.5 % (3.0-13.0); NEUTROPHILS # (AUTO) 8.5 K/uL (1.8-7.7); NEUTROPHILS % (AUTO) 73.8 % (40.0-77.0); NUCLEATED RED BLOOD CELLS 0.8 % (0.0-0.19); PLATELET COUNT (AUTO) 179 K/uL (130-400); RED BLOOD CELL COUNT(AUTO) 2.73 MIL/uL (4.50-6.20); RED CELL DISTRIBUTION WIDTH 14.5 % (11.0-15.5); WHITE BLOOD COUNT (AUTO) 11.5 K/uL (4.8-10.8)
[2023-03-26 05:13] LABS: CREATININE 7.2 mg/dL (0.5-1.5); INR 1.01 (0.85-1.15); POTASSIUM 3.1 mmol/L (3.5-5.1); PROTHROMBIN TIME 11.7 SEC (9.6-11.6)
[2023-03-26] MEDS: MIDODRINE HCL 5 MG TABLET PO SCH ×3 (05:13→21:04)
[2023-03-26 05:14] LABS: PARTIAL THROMBOPLASTIN TIME 36.2 SEC (26.3-35.5)
[2023-03-26] MEDS: LANTHANUM CARBONATE 1000 MG PO SCH ×3 (06:36→17:24)
[2023-03-26] MEDS: INSULIN HUMULIN R 100 UNIT/ML 3ML SQ SCH ×4 (07:30→21:00)
[2023-03-26] MEDS: PANTOPRAZOLE 40 MG/VIAL IVP SCH (09:00)
[2023-03-26] MEDS: DOCUSATE SODIUM 100 MG CAP PO SCH ×2 (09:00→20:24)
[2023-03-26] MEDS: HEPARIN 5,000 UNIT VIAL SQ SCH ×2 (09:00→20:30)
[2023-03-26] MEDS: METOPROLOL TARTRATE 25 MG TAB PO SCH ×2 (09:00→21:00)
[2023-03-26] MEDS: ASPIRIN 81 MG EC TAB PO SCH (09:00)
[2023-03-26] MEDS: TIMOLOL OP SCH ×2 (09:10→20:37)
[2023-03-26] MEDS: BRIMONIDINE TARTRATE OP SCH ×2 (09:10→20:37)
[2023-03-26] MEDS ORDERED: ALBUMIN (HUMAN) 25% 100 ML IV PRN (09:15)
[2023-03-26] MEDS ORDERED: ALBUMIN (HUMAN) 25% 100 ML IV ONE (09:30)
[2023-03-26] MEDS ORDERED: LIDOCAINE HCL 1% 20 ML VIAL ONE (13:13)
[2023-03-26] MEDS ORDERED: BUPIVACAINE/PF 0.5% 30ML VIAL ONE (13:13)
[2023-03-26] MEDS ORDERED: MIDAZOLAM HCL 1 MG/ML 2ML VIAL ONE (13:16)
[2023-03-26] MEDS ORDERED: FENTANYL CITRATE PF 50 MCG/1 ML 2ML VIAL ONE (13:17)
[2023-03-26] MEDS ORDERED: EPHEDRINE SULFATE 50 MG/ML AMPULE ONE (13:36)
[2023-03-26] MEDS ORDERED: VANCOMYCIN 1G/250ML KIT 250 ML IV ONE (13:44)
[2023-03-26] MEDS: FAMOTIDINE 20MG VIAL IV SCH ×2 (14:47→20:35)
[2023-03-26] MEDS: MEROPENEM 500 MG in 0.9%NACL 100ML 100 ML IV NR (16:03)
[2023-03-26] MEDS: VANCOMYCIN KIT 1 GM/250 ML IV.KIT IV SCH (20:23)
[2023-03-26] MEDS: ATORVASTATIN 40 MG TABLET PO SCH (20:24)
[2023-03-27] VITALS (10 sets, daily range): BP systolic 110–164; BP diastolic 40–87; PULSE 60–71; RESP 16–22; O2SAT 99–100
[2023-03-27 05:09] LABS: BASOPHILS # (AUTO) 0.05 K/uL (0.00-0.20); BASOPHILS % (AUTO) 0.5 % (0.0-5.0); HEMATOCRIT 28.2 % (42-54); IMMATURE GRANULOCYTE ABSOLUTE 0.23 K/uL (0-1); LYMPHOCYTES # (AUTO) 1.1 K/uL (1.0-4.8); LYMPHOCYTES % (AUTO) 10.9 % (21.0-51.0); MEAN CORPUSCULAR HEMOGLOBIN 31.3 pg (27.0-33.0); MEAN CORPUSCULAR HGB CONC 31.2 g/dL (32.0-36.0); MEAN CORPUSCULAR VOLUME 100.4 fL (79-99); MONOCYTES % (AUTO) 9.4 % (3.0-13.0); NEUTROPHILS # (AUTO) 7.8 K/uL (1.8-7.7); NUCLEATED RED BLOOD CELLS 1.2 % (0.0-0.19); PLATELET COUNT (AUTO) 196 K/uL (130-400); RED BLOOD CELL COUNT(AUTO) 2.81 MIL/uL (4.50-6.20); RED CELL DISTRIBUTION WIDTH 14.6 % (11.0-15.5); WHITE BLOOD COUNT (AUTO) 10.3 K/uL (4.8-10.8)
[2023-03-27] MEDS: MIDODRINE HCL 5 MG TABLET PO SCH ×3 (05:34→22:21)
[2023-03-27 05:45] LABS: CREATININE 5.7 mg/dL (0.5-1.5); POTASSIUM 3.6 mmol/L (3.5-5.1)
[2023-03-27] MEDS: INSULIN HUMULIN R 100 UNIT/ML 3ML SQ SCH ×4 (06:27→21:00)
[2023-03-27] MEDS: FAMOTIDINE 20MG VIAL IV SCH ×2 (08:44→20:28)
[2023-03-27] MEDS: LANTHANUM CARBONATE 1000 MG PO SCH ×3 (08:44→17:08)
[2023-03-27] MEDS: PANTOPRAZOLE 40 MG/VIAL IVP SCH (08:45)
[2023-03-27] MEDS: ASPIRIN 81 MG EC TAB PO SCH (08:45)
[2023-03-27] MEDS: HEPARIN 5,000 UNIT VIAL SQ SCH ×2 (08:45→20:44)
[2023-03-27] MEDS: METOPROLOL TARTRATE 25 MG TAB PO SCH ×2 (08:46→20:29)
[2023-03-27] MEDS: BRIMONIDINE TARTRATE OP SCH ×2 (08:46→20:48)
[2023-03-27] MEDS: TIMOLOL OP SCH ×2 (08:46→20:48)
[2023-03-27] MEDS: DOCUSATE SODIUM 100 MG CAP PO SCH ×2 (08:47→21:00)
[2023-03-27] MEDS ORDERED: COMPOUND IV MISC 1 EACH IVSOLN MISC PRN (10:30)
[2023-03-27] MEDS: ATORVASTATIN 40 MG TABLET PO SCH (20:28)
[2023-03-27 22:42] LABS: ABG BASE EXCESS -3.1 mmol/L (-2.0-3.0); ABG HCO3 22.1 mmol/L (21.0-28.0); ABG PCO2 40 mmHg (35-48); CARBON MONOXIDE 0.2; PO2, ARTERIAL BG 273.2 mmHg (83.0-108.0); VENT MODE, BG BIPAP10-5 (ROOM AIR)
[2023-03-27] MEDS ORDERED: FUROSEMIDE 40MG VIAL IV ONE (23:00)
[2023-03-27] MEDS: ONDANSETRON 4MG INJ IV PRN (23:03)
[2023-03-27 23:09] LABS: BASOPHILS # (AUTO) 0.06 K/uL (0.00-0.20); BASOPHILS % (AUTO) 0.4 % (0.0-5.0); EOSINOPHILS # (AUTO) 0.11 K/uL (0.00-0.70); EOSINOPHILS % (AUTO) 0.7 % (0.0-8.0); HEMATOCRIT 29.5 % (42-54); IMMATURE GRANULOCYTE ABSOLUTE 0.45 K/uL (0-1); LYMPHOCYTES # (AUTO) 2.8 K/uL (1.0-4.8); LYMPHOCYTES % (AUTO) 19.1 % (21.0-51.0); MEAN CORPUSCULAR HEMOGLOBIN 31.4 pg (27.0-33.0); MEAN CORPUSCULAR HGB CONC 30.5 g/dL (32.0-36.0); MEAN CORPUSCULAR VOLUME 102.8 fL (79-99); MONOCYTES # (AUTO) 1.2 K/uL (0.1-1.0); MONOCYTES % (AUTO) 8.3 % (3.0-13.0); NEUTROPHILS # (AUTO) 10.1 K/uL (1.8-7.7); NEUTROPHILS % (AUTO) 68.4 % (40.0-77.0); NUCLEATED RED BLOOD CELLS 2.5 % (0.0-0.19); PLATELET COUNT (AUTO) 270 K/uL (130-400); RED BLOOD CELL COUNT(AUTO) 2.87 MIL/uL (4.50-6.20); RED CELL DISTRIBUTION WIDTH 15.1 % (11.0-15.5); WHITE BLOOD COUNT (AUTO) 14.7 K/uL (4.8-10.8)
[2023-03-27 23:10] LABS: CREATININE 6.4 mg/dL (0.5-1.5)
[2023-03-28 01:43] VITALS: PULSE 60; RESP 18; O2SAT 99
[2023-03-28] MEDS: LANTHANUM CARBONATE 1000 MG PO SCH ×3 (07:30→17:00)
[2023-03-28] MEDS: ASPIRIN 81 MG EC TAB PO SCH (09:00)
[2023-03-28] MEDS: PANTOPRAZOLE 40 MG/VIAL IVP SCH (09:00)
[2023-03-28 20:00] VITALS: O2SAT 99
[2023-03-28] MEDS: METOPROLOL TARTRATE 25 MG TAB PO SCH (21:00)
[2023-03-28] MEDS: FAMOTIDINE 20MG VIAL IV SCH (21:00)
[2023-03-28] MEDS: TIMOLOL OP SCH (21:00)
[2023-03-28] MEDS: ATORVASTATIN 40 MG TABLET PO SCH (21:00)
[2023-03-28] MEDS: BRIMONIDINE TARTRATE OP SCH (21:00)
[2023-03-28] MEDS: DOCUSATE SODIUM 100 MG CAP PO SCH (21:00)
[2023-03-28] MEDS: HEPARIN 5,000 UNIT VIAL SQ SCH (21:00)
[2023-03-28] MEDS: INSULIN HUMULIN R 100 UNIT/ML 3ML SQ SCH (21:00)
[2023-03-28] MEDS: MIDODRINE HCL 5 MG TABLET PO SCH (22:00)
[2023-03-29] VITALS (28 sets, daily range): BP systolic 97–142; BP diastolic 27–97; PULSE 53–86; RESP 15–23; TEMP 97–97.2; O2SAT 98–99
[2023-03-29] MEDS: MIDODRINE HCL 5 MG TABLET PO SCH ×3 (06:32→20:27)
[2023-03-29] MEDS: INSULIN HUMULIN R 100 UNIT/ML 3ML SQ SCH ×4 (06:56→20:28)
[2023-03-29] MEDS: LANTHANUM CARBONATE 1000 MG PO SCH ×3 (07:30→16:33)
[2023-03-29 08:52] LABS: CREATININE 7.8 mg/dL (0.5-1.5); HEMATOCRIT 28.3 % (42-54); MAGNESIUM 2.1 mg/dL (1.80-2.40); MEAN CORPUSCULAR HEMOGLOBIN 31.2 pg (27.0-33.0); MEAN CORPUSCULAR HGB CONC 30.7 g/dL (32.0-36.0); MEAN CORPUSCULAR VOLUME 101.4 fL (79-99); NUCLEATED RED BLOOD CELLS 1.1 % (0.0-0.19); PHOSPHORUS 7.1 mg/dL (2.5-4.9); POTASSIUM 3.9 mmol/L (3.5-5.1); RED BLOOD CELL COUNT(AUTO) 2.79 MIL/uL (4.50-6.20); WHITE BLOOD COUNT (AUTO) 10.5 K/uL (4.8-10.8)
[2023-03-29] MEDS: METOPROLOL TARTRATE 25 MG TAB PO SCH ×2 (09:00→20:26)
[2023-03-29] MEDS: ASPIRIN 81 MG EC TAB PO SCH (09:16)
[2023-03-29] MEDS: PANTOPRAZOLE 40 MG/VIAL IVP SCH (09:16)
[2023-03-29] MEDS: FAMOTIDINE 20MG VIAL IV SCH ×2 (09:16→20:25)
[2023-03-29] MEDS: DOCUSATE SODIUM 100 MG CAP PO SCH ×2 (09:16→20:25)
[2023-03-29] MEDS: BRIMONIDINE TARTRATE OP SCH ×2 (09:17→20:25)
[2023-03-29] MEDS: TIMOLOL OP SCH ×2 (09:17→20:25)
[2023-03-29] MEDS: HEPARIN 5,000 UNIT VIAL SQ SCH ×2 (09:19→20:24)
[2023-03-29] MEDS: MEROPENEM 500 MG in 0.9%NACL 100ML 100 ML IV NR (15:03)
[2023-03-29] MEDS: VANCOMYCIN 750MG VIAL IVPB SCH (15:11)
[2023-03-29] MEDS: IPRATROPIUM 0.5 MG/2.5 ML INH IH SCH ×2 (18:58→23:36)
[2023-03-29] MEDS: ATORVASTATIN 40 MG TABLET PO SCH (20:24)
[2023-03-30] VITALS (30 sets, daily range): BP systolic 93–162; BP diastolic 28–72; PULSE 52–118; RESP 16–22; TEMP 97.5; O2SAT 93–100
[2023-03-30] MEDS: MIDODRINE HCL 5 MG TABLET PO SCH ×3 (05:51→20:42)
[2023-03-30] MEDS: INSULIN HUMULIN R 100 UNIT/ML 3ML SQ SCH ×4 (06:18→20:45)
[2023-03-30] MEDS: IPRATROPIUM 0.5 MG/2.5 ML INH IH SCH ×3 (06:34→18:25)
[2023-03-30] MEDS: LANTHANUM CARBONATE 1000 MG PO SCH ×3 (09:14→18:10)
[2023-03-30] MEDS: METOPROLOL TARTRATE 25 MG TAB PO SCH ×2 (09:15→20:44)
[2023-03-30] MEDS: ASPIRIN 81 MG EC TAB PO SCH (09:17)
[2023-03-30] MEDS: FAMOTIDINE 20MG VIAL IV SCH ×2 (09:18→20:43)
[2023-03-30] MEDS: PANTOPRAZOLE 40 MG/VIAL IVP SCH (09:18)
[2023-03-30] MEDS: DOCUSATE SODIUM 100 MG CAP PO SCH ×2 (09:19→20:43)
[2023-03-30] MEDS: BRIMONIDINE TARTRATE OP SCH ×2 (09:19→20:46)
[2023-03-30] MEDS: TIMOLOL OP SCH ×2 (09:19→20:46)
[2023-03-30] MEDS: HEPARIN 5,000 UNIT VIAL SQ SCH ×2 (09:31→20:44)
[2023-03-30] MEDS: ATORVASTATIN 40 MG TABLET PO SCH (20:42)
[2023-03-31] VITALS (33 sets, daily range): BP systolic 90–149; BP diastolic 31–86; PULSE 47–91; RESP 16–18; TEMP 97.7–97.8; O2SAT 95–100
[2023-03-31] MEDS: INSULIN HUMULIN R 100 UNIT/ML 3ML SQ SCH ×3 (06:36→16:22)
[2023-03-31] MEDS: MIDODRINE HCL 5 MG TABLET PO SCH ×2 (06:36→13:32)
[2023-03-31] MEDS: IPRATROPIUM 0.5 MG/2.5 ML INH IH SCH ×3 (06:42→18:33)
[2023-03-31 08:50] LABS: HEMATOCRIT 30.7 % (42-54); MEAN CORPUSCULAR HEMOGLOBIN 31.5 pg (27.0-33.0); MEAN CORPUSCULAR HGB CONC 30.6 g/dL (32.0-36.0); NUCLEATED RED BLOOD CELLS 0.5 % (0.0-0.19); RED BLOOD CELL COUNT(AUTO) 2.98 MIL/uL (4.50-6.20); RED CELL DISTRIBUTION WIDTH 16.2 % (11.0-15.5); WHITE BLOOD COUNT (AUTO) 10.8 K/uL (4.8-10.8)
[2023-03-31] MEDS: METOPROLOL TARTRATE 25 MG TAB PO SCH (09:00)
[2023-03-31] MEDS: ASPIRIN 81 MG EC TAB PO SCH (09:00)
[2023-03-31] MEDS: HEPARIN 5,000 UNIT VIAL SQ SCH (09:00)
[2023-03-31] MEDS: PANTOPRAZOLE 40 MG/VIAL IVP SCH (09:00)
[2023-03-31 09:06] LABS: ALBUMIN 2.7 g/dL (3.5-5.0); ASPARTATE AMINOTRANSFERASE 12 U/L (10-37); BILIRUBIN,TOTAL 0.6 mg/dL (0.2-1.0); CARBON DIOXIDE 28 mmol/L (21-32); CHLORIDE 100 mmol/L (101-111); CREATININE 7.7 mg/dL (0.5-1.5); GLOMERULAR FILTR. RATE CALC 7 mL/min (>90); GLUCOSE,RANDOM 110 mg/dL (70-105); POTASSIUM 4.2 mmol/L (3.5-5.1); SODIUM SERUM 140 mmol/L (136-145); TOTAL PROTEIN, SERUM 6.9 g/dL (6.0-8.3); UREA NITROGEN, BLOOD 48 mg/dL (7-18)
[2023-03-31 09:24] LABS: ALANINE AMINOTRANSFERASE < 6 U/L (12-78)
[2023-03-31] MEDS: FAMOTIDINE 20MG VIAL IV SCH (09:24)
[2023-03-31] MEDS: DOCUSATE SODIUM 100 MG CAP PO SCH (09:25)
[2023-03-31] MEDS: TIMOLOL OP SCH (09:33)
[2023-03-31] MEDS: BRIMONIDINE TARTRATE OP SCH (09:33)
[2023-03-31] MEDS: LANTHANUM CARBONATE 1000 MG PO SCH ×3 (09:33→16:43)
[2023-03-31 13:02] LABS: GLUCOSE PLEURAL FLUID 123; PROTEIN PLEURAL FLUID 2.6 mg/dL
[2023-03-31 14:02] LABS: BODY FLUID RBC 15986 /cu. mm.; BODY FLUID WBC 296 /cu. mm.
[2023-03-31] MEDS ORDERED: ALBUMIN (HUMAN) 25% 100 ML IV PRN (15:30)
[2023-03-31 16:03] LABS: APPEARANCE BODY FLUID CLOUDY (CLEAR); COLOR,BODY FLUID ORANGE (LT YELLOW); SPECIMENTYPE,BODY FLUID PLEURAL; TOTAL VOLUME,BODY FLUID 1500 mL
[2023-03-31] MEDS: VANCOMYCIN 750MG VIAL IVPB SCH (16:25)
[2023-03-31] MEDS: MEROPENEM 500 MG in 0.9%NACL 100ML 100 ML IV NR (16:35)
[2023-03-31 17:00] LABS: BF LYMPHOCYTE 60 %; BF MACROPHAGE 3; BF OTHER CELLS 2; BF TOTAL CELLS COUNTED 100
[2023-03-31 17:05] LABS: PH PLEURAL FLUID 7
== END 2023-03-31 20:00 | DRG 235 ==
LOC: 2BH 02:05 → 2DH 03-26 15:54
PROVIDERS: ADMIT Internal Medicine; ATTEND Internal Medicine
PROC: 05HY33Z Insertion of Infusion Device into Upper Vein, Percutaneous Approach (ICD-10-PCS; 2023-03-18)
PROC: 30233N1 Transfusion of Nonautologous Red Blood Cells into Peripheral Vein, Percutaneous Approach (ICD-10-PCS; 2023-03-19)
PROC: 02100Z9 Bypass Coronary Artery, One Artery from Left Internal Mammary, Open Approach (ICD-10-PCS; principal; 2023-03-19 15:00)
PROC: 0PH000Z Insertion of Rigid Plate Internal Fixation Device into Sternum, Open Approach (ICD-10-PCS; 2023-03-19 15:00)
PROC: 5A1D70Z Performance of Urinary Filtration, Intermittent, Less than 6 Hours Per Day (ICD-10-PCS; 2023-03-20)
PROC: 5A1D70Z Performance of Urinary Filtration, Intermittent, Less than 6 Hours Per Day (ICD-10-PCS; 2023-03-22)
PROC: 05HY33Z Insertion of Infusion Device into Upper Vein, Percutaneous Approach (ICD-10-PCS; 2023-03-23)
PROC: 5A1D70Z Performance of Urinary Filtration, Intermittent, Less than 6 Hours Per Day (ICD-10-PCS; 2023-03-24)
PROC: 0X6Q0Z1 Detachment at Right Middle Finger, High, Open Approach (ICD-10-PCS; 2023-03-26)
PROC: 5A1D70Z Performance of Urinary Filtration, Intermittent, Less than 6 Hours Per Day (ICD-10-PCS; 2023-03-26)
PROC: 5A1D70Z Performance of Urinary Filtration, Intermittent, Less than 6 Hours Per Day (ICD-10-PCS; 2023-03-29)
PROC: 5A1D70Z Performance of Urinary Filtration, Intermittent, Less than 6 Hours Per Day (ICD-10-PCS; 2023-03-30)
PROC: 0W9B3ZZ Drainage of Left Pleural Cavity, Percutaneous Approach (ICD-10-PCS; 2023-03-31)
PROC: 5A1D70Z Performance of Urinary Filtration, Intermittent, Less than 6 Hours Per Day (ICD-10-PCS; 2023-03-31)
DX: T82.855A Stenosis of coronary artery stent, initial encounter (principal); A41.9 Sepsis, unspecified organism; I21.4 Non-ST elevation (NSTEMI) myocardial infarction; R65.21 Severe sepsis with septic shock; N18.6 End stage renal disease; J96.01 Acute respiratory failure with hypoxia; I50.43 Acute on chronic combined systolic (congestive) and diastolic (congestive) heart failure; E11.52 Type 2 diabetes mellitus with diabetic peripheral angiopathy with gangrene; I13.2 Hypertensive heart and chronic kidney disease with heart failure and with stage 5 chronic kidney disease, or end stage renal disease; E46 Unspecified protein-calorie malnutrition; L03.113 Cellulitis of right upper limb; M86.8X4 Other osteomyelitis, hand; D62 Acute posthemorrhagic anemia; E87.20 Acidosis, unspecified; J91.8 Pleural effusion in other conditions classified elsewhere; Z20.822 Contact with and (suspected) exposure to COVID-19; I25.10 Atherosclerotic heart disease of native coronary artery without angina pectoris; E11.22 Type 2 diabetes mellitus with diabetic chronic kidney disease; E66.9 Obesity, unspecified; E78.00 Pure hypercholesterolemia, unspecified; I48.91 Unspecified atrial fibrillation; Y83.8 Other surgical procedures as the cause of abnormal reaction of the patient, or of later complication, without mention of misadventure at the time of the procedure; D64.9 Anemia, unspecified; R74.01 Elevation of levels of liver transaminase levels; E11.69 Type 2 diabetes mellitus with other specified complication; Z99.2 Dependence on renal dialysis; Z89.512 Acquired absence of left leg below knee; Y92.89 Other specified places as the place of occurrence of the external cause; Z79.899 Other long term (current) drug therapy; Z87.891 Personal history of nicotine dependence
CPT/HCPCS: 32555; 36415; 36430; 36600; 71045; 71250; 73130; 73218; 80048; 80053; 80061; 80074; 80202; 82306; 82330; 82435; 82803; 82945; 82947; 82948; 83036; 83605; 83615; 83735; 83880; 83986; 84100; 84132; 84157; 84295; 85018; 85025; 85027; 85610; 85730; 86850; 86900; 86901; 86923; 87040; 87070; 87071; 87076; 87077; 87116; 87186; 87205; 87206; 87635; 87641; 88305; 88311; 89051; 90935; 93005; 93880; 93931; 94002; 94003; 94010; 94640; 94660; 94664; 97039; A4357; A4606; A6250; A7048; C1729; C1751; C1894; C9113; G0378; J0171; J0610; J0690; J1644; J1815; J1940; J2001; J2185; J2250; J2405; J2440; J2704; J2720; J2760; J3010; J3370; J3475; J3490; J7030; J7040; J7050; J7060; P9016; P9045; P9046; A4216; A4222; A4223; A4315; A4452; A4649; A4663; A4930; A6204; A6219; A6223; A6445; A7040; C1713; C1776; G0168; Q5106